=== PATIENT | male | born 1995 | race Two or more races ===

== ENCOUNTER 2020-11-27 23:26 | Emergency (ER) | payer OTHER ==
[~2020-11-27] VITALS: Ht 188 cm; Wt 88.5 kg
[2020-11-28] MEDS ORDERED: TETANUS-DIPTH-ACEL PERTUSSIS 0.5ML SYR Tdap IM ONE (01:15)
[2020-11-28 01:30] VITALS: BP 121/67
== END 2020-11-28 02:08 | disposition home or self-care (01) ==
LOC: ER 23:29
DX: S01.511A Laceration without foreign body of lip, initial encounter (principal); W54.0XXA Bitten by dog, initial encounter; Y93.89 Activity, other specified; Y92.89 Other specified places as the place of occurrence of the external cause; Y99.8 Other external cause status
CPT/HCPCS: 12011; 40650; 90471; 90715